=== PATIENT | male | born 1985 | race Caucasian/White ===

== ENCOUNTER 2017-02-12 10:55 | Inpatient (IN) | payer OTHER ==
[~2017-02-12] VITALS: Ht 177.8 cm; Wt 72.6 kg
--- NOTE | 2017-02-12 19:02 | NUR ---
PREADMISSION NOTE. RN interviewed pt in admitting. 31 year old male, admitting for Methamphetamine and ETOH substance use. Also uses marijuana daily. NKA. Only medical history is for HIV. Tested positive for HIV at age 20. Denies history of seizure. Denies any other medical condition. Blood pressure 130/58, pulse 63, RR 16, O2 Sat 98 percent. Substance history as follows. 1. Methamphetamine, daily use, 4 gm/week, smokes, last use 02/09/17, using at this rate x 1 month. 2. ETOH, 4-5 cocktails per day, last use 02/12/17, using at this rate x 10 years. 3. Marijuana, daily use, 3.5 gm/ week, last use 02/12/17, using at this rate x 10 years. Intake to escort pt to room 302. Report given to night nurse. Night RN to complete admission.
[2017-02-12] MEDS ORDERED: LORAZEPAM 1 MG TABLET PO PRN ×2 (19:30)
[2017-02-12] MEDS ORDERED: ACETAMINOPHEN 325 MG TABLET PO PRN (19:30)
[2017-02-12] MEDS ORDERED: CLONIDINE HCL 0.1 MG TABLET PO PRN (19:30)
[2017-02-12] MEDS ORDERED: MAG HYDROX/AL HYDROX/SIMETH 30 ML LIQUID UDC PO PRN (19:30)
[2017-02-12] MEDS ORDERED: diphenhydrAMINE 50 MG CAPSULE PO PRN (19:30)
[2017-02-12] MEDS ORDERED: MAGNESIUM HYDROXIDE 30 ML LIQUID UDC PO PRN (19:30)
[2017-02-12] MEDS ORDERED: LORAZEPAM 2 MG/1 ML VIAL IM PRN (19:30)
[2017-02-12] MEDS ORDERED: ONDANSETRON ODT 4 MG TAB.RAPDIS SL PRN (19:30)
[2017-02-12] MEDS ORDERED: ONDANSETRON 4 MG/2 ML VIAL IM PRN (19:30)
[2017-02-12] MEDS ORDERED: IBUPROFEN 400 MG TABLET PO PRN (19:30)
[2017-02-12] MEDS ORDERED: MIRALAX 17 GM POWD.PACK PO PRN (19:30)
[2017-02-12] MEDS ORDERED: THIAMINE HCL 200 MG/2 ML VIAL IM ONE (19:30)
[2017-02-12] MEDS ORDERED: LOPERAMIDE HCL 2 MG CAPSULE PO PRN ×2 (19:30)
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
[2017-02-12 20:21] LABS: *AMPHETAMINE, URINE NEGATIVE (NEGATIVE); *BARBITURATE, URINE NEGATIVE (NEGATIVE); *CANNABINOID, URINE POSITIVE (NEGATIVE); *COCCAINE, URINE NEGATIVE (NEGATIVE); *OPIATE, URINE NEGATIVE (NEGATIVE); *PHENCYCLIDINE SCREEN,URINE NEGATIVE (NEGATIVE)
[2017-02-12] MEDS ORDERED: LORAZEPAM 1 MG TABLET PO ONE (21:00)
[2017-02-12 21:36] LABS: ALANINE AMINOTRANSFERASE 23 U/L (16-63); ALKALINE PHOSPHATASE 45 U/L (50-136); ASPARTATE AMINOTRANSFERASE 14 U/L (15-37); BASOPHILS % (AUTO) 0.3 % (0.0-2.0); BILIRUBIN,TOTAL 0.2 mg/dL (0.2-1.0); CARBON DIOXIDE 32 mmol/L (21-32); CHLORIDE 105 mmol/L (98-107); CREATININE 1.4 mg/dL (0.6-1.3); EOSINOPHILS # (AUTO) 0.4 K/uL (0.0-0.7); EOSINOPHILS % (AUTO) 5.5 % (0.0-7.0); GLUCOSE 114 mg/dL (74-106); MAGNESIUM 2.1 mg/dL (1.8-2.4); MEAN CORPUSCULAR HEMOGLOBIN 30.9 UUG (27.0-31.0); MEAN CORPUSCULAR HGB CONC 33 g/dL (32.0-37.0); MEAN CORPUSCULAR VOLUME 92.7 FL (82.0-92.0); MONOCYTES # (AUTO) 0.6 K/UL (0.1-1.30); MONOCYTES % (AUTO) 8.9 % (0.0-11.0); NEUTROPHILS # (AUTO) 2.9 K/UL (1.8-8.9); NEUTROPHILS % (AUTO) 42.3 % (38.5-71.5); PLATELET COUNT (AUTO) 203 K/UL (150-450); POTASSIUM 4.3 mmol/L (3.5-5.1); RED BLOOD CELL COUNT(AUTO) 4.53 MIL/UL (4.7-6.1); TOTAL PROTEIN, SERUM 6.4 g/dL (6.4-8.2); UREA NITROGEN, BLOOD 20 mg/dL (7-18); WHITE BLOOD COUNT (AUTO) 6.9 K/UL (4.0-11.2)
[2017-02-12 21:49] LABS: ETHANOL < 3 MG/DL (0-0)
[2017-02-12] MEDS ORDERED: ELVI1TAB3 PO (23:41)
[2017-02-12] MEDS ORDERED: MELA5TAB PO (23:46)
[2017-02-12] MEDS ORDERED: CARNITINE PO (23:47)
[2017-02-13] VITALS: BP 110/60
--- NOTE | 2017-02-13 | NUR ---
BRAY[place] DEFERRED PATIENT ASLEEP AT 0000. TONE DEFERRED
[2017-02-13 04:00] VITALS: BP 117/66
--- NOTE | 2017-02-13 04:00 | NUR ---
CIWA deferred CIWA deferred at 0400. Patient asleep
--- NOTE | 2017-02-13 06:50 | NUR ---
END OF SHIFT NOTE Patient is a 31 year old male admitted to [facility] for ETOH detox. Patient is currently drinking 2-3 cocktails daily, as well as several times weekly binge drinking large quantities of alcohol. Patient reports drinking for 10 years. Last drink today approximately 2-3 cocktails. Patient also heavily using Methamphetamine via smoking or rectal use. Patient states this is approximately 4 grams a week but states it varies and it can be higher than this. Patient states he has been using at this rate for over one month. Last use 02-09-17. Patient also reports intermittent cocaine nasally, which he states is not a regular or routine occurrence. Patient also uses marijuana on a daily basis approximately 3.5 gm a week for 10 years. Last used today. Patient had a period of sobriety in 2016 after rehabilitation at [facility] from 2-16 to 4-16. He states he stayed sober for one year. He has no known allergies, is on a full code, and regular diet. He is on both fall and seizure precautions. He denies past seizure history. Past medical history of HIV since age 20. On anti retroviral therapy. Currently taking Genvoya 150/150/200mg daily in AM last taken 02-12-17 at 0630. Patient vital signs at 2000 BP 109/65, P 60, T 97.9 SPO2 99% on RA, R 18. CIWA 7. VS at 0000 BP 110/60, P 64, T 98.0, SPO2 98% on RA, R 16. CIWA deferred. Vital signs at 0400 BP 117/66, P 52, R 18, SPO2 98% on RA, T 98.4. CIWA deferred. Patient intake 500 ml output 2 void 1 BM. Slept 8 hours.
[2017-02-13 08:00] VITALS: BP 111/60
--- NOTE | 2017-02-13 08:05 | NUR ---
START OF SHIFT: RECEIVED PT A/O X 4. HE PRESENTS WITH ANXIOUS MOOD AND CONGRUENT AFFECT. HE REPORTS SOME MILD ANXIETY. HE STATES HE FEELS FATIGUED MOSTLY.CIWA 1. HE STATES HIS APPETITE IS GOOD AND HE IS SLEEPING WELL. HOME MEDS UNAVAILABLE AT THIS TIME WILL FOLLOW UP WITH PHARMACY. WILL CONTINUE TO MONITOR AND PROVIDE SAFE AND SUPPORTIVE ENVIRONMENT.
[2017-02-13] MEDS ORDERED: TUBERCULIN,PURIF.PROT.DERIV. 5 TU/0.1 ML TEST ID ONE (09:00)
[2017-02-13] MEDS: FOLIC ACID 1 MG TABLET PO SCH (09:31)
[2017-02-13] MEDS: THIAMINE HCL 100 MG TABLET PO SCH (09:31)
[2017-02-13] MEDS: MULTIVITAMINS,THERAPEUTIC TABLET PO SCH (09:31)
[2017-02-13] MEDS: [UNRECOGNIZED DRUG - OTHER] PO SCH (10:55)
[2017-02-13 12:00] VITALS: BP 119/62
[2017-02-13 16:00] VITALS: BP 122/66
--- NOTE | 2017-02-13 18:22 | NUR ---
END OF SHIFT: PT CONTINUES ON OBSERVATION WITH PRNS AVAILABLE. HE IS SCHEDULED FOR DISCHARGE TOMORROW.NO PRNS GIVEN ON THIS SHIFT. PT ATTENDED GROUPS AND INTERACTED WITH PEERS. HE IS COMPLIANT WITH TREATMENT PLAN. HE REFUSED PPD. MADE AWARE. WILL PASS SHIFT REPORT TO ONCOMING NIGHT NURSE.
--- NOTE | 2017-02-13 19:42 | NUR ---
START OF SHIFT PATIENT IS A 31 YEAR OLD MALE ADMITTED ON 02-12-17 FOR ALCOHOL DETOX. PATIENT HAS REMAINED WITHOUT WITHDRAWAL SYMPTOMS. LAST CIWA 1. VITAL SIGNS STABLE. DENIES SI OR HI. HAS BEEN UP ON UNIT PARTICIPATING IN GROUPS. PLANS ON DISCHARGE TOMORROW TO [facility]. SAFETY MEASURES IN PLACE. CALL LIGHT WITHIN REACH. BED LOCKED AND IN LOWEST POSITION. 2 SIDE RAILS UP FOR SAFETY. REPORT FROM AM SHIFT.
[2017-02-13 20:00] VITALS: BP 110/70
[2017-02-13] MEDS ORDERED: FOLI1TAB16 PO (20:22)
[2017-02-13] MEDS ORDERED: MULT-24 PO (20:22)
[2017-02-13] MEDS ORDERED: HYDR25CA PO (20:22)
[2017-02-13] MEDS ORDERED: THIA100T13 PO (20:22)
[2017-02-13] MEDS ORDERED: DIPH50CA37 PO (20:22)
[2017-02-13] MEDS ORDERED: IBUP-1953 PO (20:22)
--- NOTE | 2017-02-13 20:31 | NUR ---
PRN MEDICATION BENADRYL 50 MG PO GIVEN AT 2030 FOR COMPLAINTS OF INSOMNIA. EFFECT PENDING.
[2017-02-13 21:58] LABS: *BILIRUBIN,URIN NEGATIVE (NEGATIVE); *BLOOD, URINE NEGATIVE (NEGATIVE); *CLARITY,URINE CLEAR (CLEAR); *COLOR,URINE YELLOW (YELLOW); *KETONES,URINE NEGATIVE (NEGATIVE); *PROTEIN,URINE NEGATIVE (NEGATIVE); *UROBILINOGEN,URINE 0.2 E.U./dl (NORMAL); LEUKOCYTE ESTERASE ,URINE NEGATIVE (NEGATIVE); NITRITE, URINE NEGATIVE (NEGATIVE); PH,URINE 7.5 (5.0-8.0); UGLUCOSE NEGATIVE (NEGATIVE)
[2017-02-13 22:20] LABS: WBC,URINE NONE SEEN /HPF (0-3)
--- NOTE | 2017-02-13 22:31 | NUR ---
REASSESSMENT OF PATIENT PATIENT REASSESSED ONE HOUR AFTER BENADRYL 50 MG PO GIVEN FOR INSOMNIA. PATIENT RESTING COMFORTABLY IN BED WITH EYES CLOSED. BENADRYL APPEARS EFFECTIVE.
--- NOTE | 2017-02-14 | NUR ---
CIWA DEFERRED/VITAL SIGNS REFUSED PATIENT REFUSED VITAL SIGNS AT 0000. CIWA DEFERRED FOR SLEEP
--- NOTE | 2017-02-14 04:00 | NUR ---
CIWA DEFERRED/VITAL SIGNS REFUSED PATIENT REFUSED VITAL SIGNS AT 0400. CIWA DEFERRED FOR SLEEP
[2017-02-14 06:09] LABS: HEPATITIS B SURFACE AG Negative (Negative)
--- NOTE | 2017-02-14 06:50 | NUR ---
End of shift PATIENT IS A 31 YEAR OLD MALE ADMITTED ON 02-12-17 FOR ALCOHOL DETOX. PATIENT HAS REMAINED WITHOUT WITHDRAWAL SYMPTOMS. LAST CIWA 3. VITAL SIGNS STABLE. DENIES SI OR HI. Vital signs at 1999 BP 110/70, P 78, R 16, SPO2 98% ON RA, T 98.0 CIWA 3. PATIENT RECEIVED BENADRYL 50 MG PO FOR SLEEP WITH GOOD EFFECT. PATIENT SLEPT A TOTAL OF 8 HOURS. INTAKE 2047 ML OUTPUT 3 VOIDS. SAFETY MEASURES IN PLACE. CALL LIGHT WITHIN REACH. BED LOCKED AND IN LOWEST POSITION. 2 SIDE RAILS UP FOR SAFETY. REPORT TO AM SHIFT.
[2017-02-14 06:54] LABS: CREATININE 1.1 mg/dL (0.6-1.3); MAGNESIUM 1.9 mg/dL (1.8-2.4); POTASSIUM 4.7 mmol/L (3.5-5.1)
--- NOTE | 2017-02-14 07:25 | NUR ---
Start of Shift Offshoring Manager received report on 31 year old male admitted on 02/12/17 for ETOH and Methamphetamine detoxification. Pt endorses NKA, full code and regular diet. Pt reports PMH of HIV. Pt received Benadryl as a PRN on steward/stewardess night. Pt was never on taper. Pts last reports CIWA was 2. Pt is scheduled for discharge today and will be transported to [facility] residential treatment program. Pt encountered in pts room. Pt is A/O x4 and makes his needs known. Clear though and speech. Calm, cooperative, but mildly anxious r/t treatment. Bed in low position with wheels locked and side rails up x2, call light within reach. Will continue to monitor, support and encourage according to plan of care.
[2017-02-14 08:34] VITALS: BP 119/70
[2017-02-14] MEDS: THIAMINE HCL 100 MG TABLET PO SCH (09:00)
[2017-02-14] MEDS: [UNRECOGNIZED DRUG - OTHER] PO SCH (09:00)
[2017-02-14] MEDS: FOLIC ACID 1 MG TABLET PO SCH (09:00)
[2017-02-14] MEDS: MULTIVITAMINS,THERAPEUTIC TABLET PO SCH (09:00)
--- NOTE | 2017-02-14 09:24 | NUR ---
Pt is discharged per ambulation to awaiting private transportation for ride to [facility] treatment center. Pt is A/O x4, makes needs known and is calm and cooperative. Pt with clear thought and speech. Pt denies HI/SI or A?VH, or any other psychiatric symptoms, although pt is mildly anxious about treatment. All discharge education provided, including medication education, to include, indication, time and route of medication. Pt signed all discharge paperwork and denied any further comments, questions or concerns. Pt's own medication signed for and returned to pt. Pt VS WNL, no physical complaints voiced. MD made aware of pt's departure.
[2017-02-16 08:07] LABS: *GC NAA Negative (Negative); *TRIC.VAG. NAA Negative (Negative)
== END 2017-02-14 09:24 | disposition other institution (70) | DRG 895 ==
LOC: SRC 17:44
PROVIDERS: ADMIT Internal Medicine; ATTEND Internal Medicine
PROC: HZ2ZZZZ Detoxification Services for Substance Abuse Treatment (ICD-10-PCS; principal; 2017-02-12)
PROC: HZ41ZZZ Group Counseling for Substance Abuse Treatment, Behavioral (ICD-10-PCS; principal; 2017-02-12)
DX: F15.23 Other stimulant dependence with withdrawal (principal); N17.9 Acute kidney failure, unspecified; F14.10 Cocaine abuse, uncomplicated; F10.230 Alcohol dependence with withdrawal, uncomplicated; F10.220 Alcohol dependence with intoxication, uncomplicated; Y90.9 Presence of alcohol in blood, level not specified; Z79.899 Other long term (current) drug therapy; Z72.51 High risk heterosexual behavior; Z72.0 Tobacco use; F12.10 Cannabis abuse, uncomplicated; Z82.49 Family history of ischemic heart disease and other diseases of the circulatory system; Z81.1 Family history of alcohol abuse and dependence
CPT/HCPCS: 36415; 70030-TC; 80307; 80349; 83735; 85025; 86592; 86705; 86803; 87340; 87491; 87806; G0480; J3411; Q0163